=== PATIENT | male | born 1990 | race Caucasian/White ===

== ENCOUNTER 2018-07-25 15:54 | Observation (INO) | payer OTHER ==
--- NOTE | 2018-07-25 15:55 | EDM.PDOC ---
ED HPI GENERAL MEDICAL PROBLEM - General Stated Complaint: RIGHT SIDE PAIN Time Seen by Provider: 07/25/18 15:55 Source of Information: Reports: Patient History Limitations: Reports: No Limitations - History of Present Illness INITIAL COMMENTS - FREE TEXT/NARRATIVE: HISTORY AND PHYSICAL: History of present illness: Patient is a 27-year-old male who presents to the emergency room with complaints of right lower quadrant pain 2 days. Patient reports he has had nausea without vomiting. Subjective chills but has not checked a temperature at home. He denies any headache, change in vision, syncope or near syncope. Denies any chest pain, back pain, shortness of breath or cough. Denies any vomiting, diarrhea, constipation or dysuria. Has not noted any blood in urine or stool. Patient has been eating and drinking appropriately. Review of systems: As per history of present illness and below otherwise all systems reviewed and negative. Past medical history: As per history of present illness and as reviewed below otherwise noncontributory. Surgical history: As per history of present illness and as reviewed below otherwise noncontributory. Social history: See social history for further information Family history: As per history of present illness and as reviewed below otherwise noncontributory. Physical exam: General: Well-developed and well-nourished 27-year-old male. Alert and oriented. Nontoxic appearing and in no acute distress. HEENT: Atraumatic, normocephalic, pupils equal and reactive bilaterally, negative for conjunctival pallor or scleral icterus, mucous membranes moist, TMs normal bilaterally, throat clear, neck supple, nontender, trachea midline. No drooling or trismus noted. No meningeal signs. No hot potato voice noted. Lungs: Clear to auscultation, breath sounds equal bilaterally, chest nontender. Heart: S1S2, regular rate and rhythm without overt murmur Abdomen: Soft, nondistended, tenderness to the RLQ, no rebound tenderness. Negative for masses or hepatosplenomegaly. Negative for costovertebral tenderness. Pelvis: Stable nontender. Genitourinary: Deferred. Rectal: Deferred. Skin: Intact, warm, dry. No lesions or rashes noted. Extremities: Atraumatic, moves all extremities per self without difficulty or deficits, negative for cords or calf pain. Neurovascular unremarkable. Neuro: Awake, alert, oriented. Cranial nerves II through XII unremarkable. Cerebellum unremarkable. Motor and sensory unremarkable throughout. Exam nonfocal. Notes: Lab work is unremarkable. The CT shows acute appendicitis. Dr. Wooten, general surgeon formulation scientist, was consulted on this case. He states he will come in and see the patient. Patient was made aware of the diagnostic findings. He declines the need for anything further for pain at this time. 1945:Dr Wooten here to see patient. Diagnostics: CBC, CMP, UA, CT Abdomen/Pelvis Therapeutics: IV fluids, Zofran, Toradol Impression: Acute appendicitis Plan: To OR per Je Definitive disposition and diagnosis as appropriate pending reevaluation and review of above. Right Lower Abdomen Pain Score (Numeric/FACES): 7 - Related Data Allergies Allergy/AdvReac Type Severity Reaction Status Date / Time Penicillins Allergy Hives Verified 07/25/18 16:09 Home Meds: Home Meds . [No Known Home Meds] 07/25/18 [History] ED ROS GENERAL - Review of Systems Review Of Systems: ROS reveals no pertinent complaints other than HPI. ED EXAM, GI/ABD - Physical Exam Exam: See Below (See dictation) Course - Vital Signs Last Recorded V/S: Last Vital Signs Temp 98.9 F 07/25/18 16:09 Pulse 78 07/25/18 20:20 Resp 16 07/25/18 20:20 BP 115/65 07/25/18 20:20 Pulse Ox 97 07/25/18 20:20 - Orders/Labs/Meds Orders: Active Orders 24 hr Category Date Time Status Admission Status [Patient Status] [ADT] Routine ADT 07/25/18 20:33 Active Antiembolic Devices [RC] PER UNIT ROUTINE Care 07/25/18 20:06 Active Insert Urinary Catheter [OM.PC] Timed Care 07/25/18 20:06 Ordered Oxygen Therapy [RC] ASDIRECTED Care 07/25/18 20:06 Active RT Incentive Spirometry [RC] Q1HWA Care 07/25/18 20:06 Active Skin Preparation [RC] .PREOP Care 07/25/18 20:06 Active Urinary Catheter Assessment [RC] ASDIRECTED Care 07/25/18 20:06 Active Urinary Catheter Assessment [RC] ASDIRECTED Care 07/25/18 20:06 Active Urinary Catheter Assessment [RC] ASDIRECTED Care 07/25/18 20:06 Active Vital Signs [RC] PER UNIT ROUTINE Care 07/25/18 20:06 Active Nothing Per Oral Diet [DIET] Diet 07/25/18 Dinner Active Lactated Ringers [Ringers, Lactated] 1,000 ml Med 07/25/18 20:15 Active IV ASDIRECTED Antiembolic Hose [OM.PC] Routine Oth 07/25/18 20:06 Ordered Resuscitation Status Routine Resus Stat 07/25/18 20:06 Ordered Medication Orders Lactated Ringer's (Ringers, Lactated) 1,000 mls @ 125 mls/hr IV ASDIRECTED ELIANA Last Admin: 07/25/18 20:24 Dose: 125 mls/hr Labs: Laboratory Tests 07/25/18 07/25/18 07/25/18 Range/Units 16:40 16:40 17:00 WBC 9.42 (4.0-11.0) K/uL RBC 5.39 (4.50-5.90) M/uL Hgb 16.5 (13.0-17.0) g/dL Hct 48.3 (38.0-50.0) % MCV 89.6 (80.0-98.0) fL MCH 30.6 (27.0-32.0) pg MCHC 34.2 (31.0-37.0) g/dL RDW Std Deviation 42.6 (28.0-62.0) fl RDW Coeff of Roshan 13 (11.0-15.0) % Plt Count 206 (150-400) K/uL MPV 11.40 (7.40-12.00) fL Neut % (Auto) 70.1 (48.0-80.0) % Lymph % (Auto) 20.6 (16.0-40.0) % [place] % (Auto) 7.5 (0.0-15.0) % Eos % (Auto) 1.5 (0.0-7.0) % Baso % (Auto) 0.3 (0.0-1.5) % Neut # (Auto) 6.6 H (1.4-5.7) K/uL Lymph # (Auto) 1.9 (0.6-2.4) K/uL [place] # (Auto) 0.7 (0.0-0.8) K/uL Eos # (Auto) 0.1 (0.0-0.7) K/uL Baso # (Auto) 0.0 (0.0-0.1) K/uL Nucleated RBC % 0.0 /100WBC Nucleated RBCs # 0 K/uL Sodium 138 (136-148) mmol/L Potassium 3.9 (3.5-5.1) mmol/L Chloride 102 (98-107) mmol/L Carbon Dioxide 25.7 (21.0-32.0) mmol/L BUN 8 (7.0-18.0) mg/dL Creatinine 0.9 (0.8-1.3) mg/dL Est Cr Clr Drug Dosing 138.10 mL/min Estimated GFR (MDRD) > 60.0 ml/min Glucose 95 (74-106) mg/dL Calcium 9.7 (8.5-10.1) mg/dL Total Bilirubin 0.8 (0.2-1.0) mg/dL AST 12 L (15-37) IU/L ALT 31 (14-63) IU/L Alkaline Phosphatase 44 L (46-116) U/L Total Protein 8.4 H (6.4-8.2) g/dL Albumin 4.6 (3.4-5.0) g/dL Globulin 3.8 (2.6-4.0) g/dL Albumin/Globulin Ratio 1.2 (0.9-1.6) Urine Color YELLOW Urine Appearance CLEAR Urine pH 7.0 (5.0-8.0) Ur Specific [place] <= 1.005 (1.001-1.035) Urine Protein NEGATIVE (NEGATIVE) mg/dL Urine Glucose (UA) NEGATIVE (NEGATIVE) mg/dL Urine Ketones NEGATIVE (NEGATIVE) mg/dL Urine Occult Blood NEGATIVE (NEGATIVE) Urine Nitrite NEGATIVE (NEGATIVE) Urine Bilirubin NEGATIVE (NEGATIVE) Urine Urobilinogen 0.2 (<2.0) EU/dL Ur Leukocyte Esterase NEGATIVE (NEGATIVE) Meds: Medications Generic Name Dose Route Start Last Admin Trade Name Freq PRN Reason Stop Dose Admin Lactated Ringer's 1,000 mls @ 125 mls/hr 07/25/18 20:15 07/25/18 20:24 Ringers, Lactated IV 125 mls/hr ASDIRECTED ELIANA Administration Discontinued Medications Generic Name Dose Route Start Last Admin Trade Name Freq PRN Reason Stop Dose Admin Bupivacaine HCl Confirm 04/26/19 20:32 Sensorcaine-Mpf 0.5% Administered 07/25/18 20:33 Dose 10 ml .ROUTE .STK-MED ONE Cefazolin Sodium Confirm 07/25/18 20:32 Ancef Administered 07/25/18 20:33 Dose 1 gm .ROUTE .STK-MED ONE Fentanyl Confirm 07/25/18 20:27 Sublimaze Administered 07/25/18 20:28 Dose 250 mcg .ROUTE .STK-MED ONE Sodium Chloride 1,000 mls @ 999 mls/hr 07/25/18 16:12 07/25/18 17:00 Normal Saline IV 07/25/18 17:12 999 mls/hr STAT ONE Administration Cefoxitin Sodium 2 gm/ Premix 50 mls @ 100 mls/hr 07/25/18 20:06 07/25/18 20: 29 IV 07/25/18 20:35 100 mls/hr ONETIME ONE Administration Iopamidol 100 ml 07/25/18 18:09 07/25/18 18:10 Isovue Multipack-370 (76%) IVPUSH 07/25/18 18:10 100 ml ONETIME STA Administration Ketorolac Tromethamine 30 mg 07/25/18 16:12 07/25/18 16:43 Toradol IVPUSH 07/25/18 16:13 30 mg ONETIME ONE Administration Lidocaine Confirm 07/25/18 20:27 Xylocaine-Mpf 2% Administered 07/25/18 20:28 Dose 5 ml .ROUTE .STK-MED ONE Midazolam HCl Confirm 07/25/18 20:27 Versed 1 Mg/Ml Administered 07/25/18 20:28 Dose 2 mg .ROUTE .STK-MED ONE Ondansetron HCl 4 mg 07/25/18 16:12 07/25/18 16:43 Zofran IVPUSH 07/25/18 16:13 4 mg ONETIME ONE Administration Ondansetron HCl Confirm 07/25/18 20:27 Zofran Administered 07/25/18 20:28 Dose 4 mg .ROUTE .STK-MED ONE Propofol Confirm 07/25/18 20:27 Diprivan 20 Ml Administered 07/25/18 20:28 Dose 200 mg .ROUTE .STK-MED ONE Rocuronium Funk Confirm 07/25/18 20:27 Zemuron Administered 07/25/18 20:28 Dose 100 mg .ROUTE .STK-MED ONE Succinylcholine Chloride Confirm 07/25/18 20:27 Succinylcholine Chloride Administered 07/25/18 20:28 Dose 200 mg .ROUTE .STK-MED ONE Departure - Departure Time of Disposition: 20:44 Disposition: Refer to Observation Clinical Impression: Acute appendicitis Qualifiers: Acute appendicitis type: unspecified acute appendicitis type Qualified Code(s) : K35.80 - Unspecified acute appendicitis - Discharge Information - My Orders Last 24 Hours: My Active Orders 07/25/18 20:33 Admission Status [Patient Status] [ADT] Routine - Assessment/Plan Last 24 Hours: My Active Orders 07/25/18 20:33 Admission Status [Patient Status] [ADT] Routine
[2018-07-25] MEDS ORDERED: Ondansetron 4 MG/2 ML SDV IVPUSH ONE (16:12)
[2018-07-25] MEDS ORDERED: Ketorolac 30 MG/ML SDV IVPUSH ONE (16:12)
[2018-07-25] MEDS ORDERED: Sodium Chloride 0.9% 1,000 ML IV ONE (16:12)
[2018-07-25 17:38] LABS: CHLORIDE,CL 102 mmol/L (98-107); SODIUM,NA 138 mmol/L (136-148)
[2018-07-25] MEDS ORDERED: Iopamidol 755 MG/ML 500 ML Multipack Bottle IVPUSH STA (18:09)
--- NOTE | 2018-07-25 19:19 | CT ---
INDICATION: Right lower quadrant pain TECHNIQUE: CT abdomen and pelvis acquired with IV contrast. 100 mL of Isovue 370 administered. COMPARISON: None available FINDINGS: Lower chest: Unremarkable. Liver: Unremarkable. Spleen: Unremarkable. Pancreas: Unremarkable. Gallbladder and bile ducts: Unremarkable. Adrenal glands: Unremarkable. Kidneys: Unremarkable. GI tract: A thickened appendix measuring 1.1 cm with mild adjacent stranding, consistent with appendicitis. No bowel obstruction. No significant pericolonic changes. Vascular structures: Unremarkable. Lymph nodes: No abnormally enlarged lymph nodes. Shotty subcentimeter right lower quadrant mesenteric lymph nodes, likely reactive. Miscellaneous: No significant free fluid or free air. Pelvic Organs: Unremarkable. Bones: Unremarkable for age. IMPRESSION: Acute appendicitis. Dictated by Ehsan Velazco MD @ 07/25/2018 7:16:51 PM Please note that all CT scans at this facility use dose modulation, iterative reconstruction, and/or weight-based dosing when appropriate to reduce radiation dose to as low as reasonably achievable. Dictated by: Ehsan Velazco MD @ 07/25/2018 19:17:13 (Electronically Signed)
[2018-07-25] MEDS ORDERED: cefOXitin 2 GM in Premix Bag 1 BAG IV ONE (20:06)
--- NOTE | 2018-07-25 20:12 | PCM.CONS ---
H&P History of Present Illness - General Date of Service: 07/25/18 Admit Problem/Dx: Patient is a 27-year-old gentleman who presented to the emergency room earlier today complaining of abdominal pain. The pain was initially centrally located. Patient thought he had eaten something bad. He was able to go to sleep last time but the pain awakened him during the night. He has had associated nausea but no vomiting. Says his appetite is poor. Pain has migrated to the right lower quadrant. Denies any fever or chills. Source of Information: Patient, Family History Limitations: Reports: No Limitations - History of Present Illness Symptom Onset Date: 07/24/18 Duration of Symptoms: Reports: Constant, Getting Worse Location: Reports: Abdomen Quality: Reports: Ache, Pressure Severity: Moderate Improves with: Reports: Rest Worsens with: Reports: Movement Context: Reports: Sick Contact Associated Symptoms: Reports: Fever/Chills (No chills), Nausea/Vomiting (No vomiting) Right Lower Abdomen Pain Score (Numeric/FACES): 7 - Related Data Allergies/Adverse Reactions: Allergies Allergy/AdvReac Type Severity Reaction Status Date / Time Penicillins Allergy Hives Verified 07/25/18 16:09 Home Medications: Home Meds . [No Known Home Meds] 07/25/18 [History] Past Medical History Cardiovascular History: Reports: None Respiratory History: Reports: None Gastrointestinal History: Reports: None Genitourinary History: Reports: None Musculoskeletal History: Reports: None Neurological History: Reports: None Psychiatric History: Reports: None Endocrine/Metabolic History: Reports: None Hematologic History: Reports: None Immunologic History: Reports: None Oncologic (Cancer) History: Reports: None Dermatologic History: Reports: None - Infectious Disease History Infectious Disease History: Reports: Chicken Pox - Past Surgical History Head Surgeries/Procedures: Reports: None HEENT Surgical History: Reports: Tonsillectomy Other Musculoskeletal Surgeries/Procedures:: Repair of fractured ankle. Bone cyst removal. Social & Family History - Family History Family Medical History: Noncontributory - Tobacco Use Smoking Status *Q: Never Smoker Second Hand Smoke Exposure: No - Caffeine Use Caffeine Use: Reports: Energy Drinks - Recreational Drug Use Recreational Drug Use: No H&P Review of Systems - Review of Systems: Review Of Systems: See Below General: Reports: Fever, Decreased Appetite. Denies: Chills, Night Sweats, Diaphoresis, Weight Loss HEENT: Reports: No Symptoms Pulmonary: Denies: Shortness of Breath, Wheezing Cardiovascular: Denies: Chest Pain Gastrointestinal: Reports: Abdominal Pain, Anorexia, Decreased Appetite, Nausea. Denies: Constipation, Diarrhea, Vomiting Genitourinary: Denies: Dysuria, Frequency, Burning Musculoskeletal: Reports: No Symptoms Skin: Reports: No Symptoms Psychiatric: Reports: No Symptoms Neurological: Reports: No Symptoms Hematologic/Lymphatic: Reports: No Symptoms Immunologic: Reports: No Symptoms Exam - Exam Exam: See Below - Vital Signs Vital Signs: Last Vital Signs Temp 98.9 F 07/25/18 16:09 Pulse 72 07/25/18 18:30 Resp 16 07/25/18 18:30 BP 107/65 07/25/18 18:30 Pulse Ox 99 07/25/18 18:30 Weight: 220 lb - Exam General: Alert, Oriented, Cooperative, Mild Distress HEENT: Conjunctiva Clear, EACs Clear, Pupils Equal, Pupils Reactive, Scleral Icterus Neck: Supple, Trachea Midline, +2 Carotid Pulse wo Bruit Lungs: Clear to Auscultation, Normal Respiratory Effort Cardiovascular: Regular Rate, Regular Rhythm, Normal S1, Normal S2. No: Tachycardia GI/Abdominal Exam: Normal Bowel Sounds, Soft, No Distention, No Abnormal Bruit, No Mass, Rebound, Tender. No: Guarding, Rigid, Hernia (Male) Exam: No Hernia Rectal (Males) Exam: Deferred Back Exam: Normal Inspection Extremities: Normal Inspection Peripheral Pulses: 4+: Posterior Tibial (L), Posterior Tibial (R), Dorsalis Pedis (L), Dorsalis Pedis (R) Skin: Warm, Dry, Intact Neurological: Cranial Nerves Intact, Reflexes Equal Bilateral Neuro Extensive - Mental Status: Alert, Oriented x3, Normal Mood/Affect, Normal Cognition Psychiatric: Alert, Normal Affect, Normal Mood - Patient Data Lab Results Last 24 hrs: Laboratory Results - last 24 hr 07/25/18 07/25/18 07/25/18 Range/Units 16:40 16:40 17:00 WBC 9.42 (4.0-11.0) K/uL RBC 5.39 (4.50-5.90) M/uL Hgb 16.5 (13.0-17.0) g/dL Hct 48.3 (38.0-50.0) % MCV 89.6 (80.0-98.0) fL MCH 30.6 (27.0-32.0) pg MCHC 34.2 (31.0-37.0) g/dL RDW Std Deviation 42.6 (28.0-62.0) fl RDW Coeff of Roshan 13 (11.0-15.0) % Plt Count 206 (150-400) K/uL MPV 11.40 (7.40-12.00) fL Neut % (Auto) 70.1 (48.0-80.0) % Lymph % (Auto) 20.6 (16.0-40.0) % [place] % (Auto) 7.5 (0.0-15.0) % Eos % (Auto) 1.5 (0.0-7.0) % Baso % (Auto) 0.3 (0.0-1.5) % Neut # (Auto) 6.6 H (1.4-5.7) K/uL Lymph # (Auto) 1.9 (0.6-2.4) K/uL [place] # (Auto) 0.7 (0.0-0.8) K/uL Eos # (Auto) 0.1 (0.0-0.7) K/uL Baso # (Auto) 0.0 (0.0-0.1) K/uL Nucleated RBC % 0.0 /100WBC Nucleated RBCs # 0 K/uL Sodium 138 (136-148) mmol/L Potassium 3.9 (3.5-5.1) mmol/L Chloride 102 (98-107) mmol/L Carbon Dioxide 25.7 (21.0-32.0) mmol/L BUN 8 (7.0-18.0) mg/dL Creatinine 0.9 (0.8-1.3) mg/dL Est Cr Clr Drug Dosing 138.10 mL/min Estimated GFR (MDRD) > 60.0 ml/min Glucose 95 (74-106) mg/dL Calcium 9.7 (8.5-10.1) mg/dL Total Bilirubin 0.8 (0.2-1.0) mg/dL AST 12 L (15-37) IU/L ALT 31 (14-63) IU/L Alkaline Phosphatase 44 L (46-116) U/L Total Protein 8.4 H (6.4-8.2) g/dL Albumin 4.6 (3.4-5.0) g/dL Globulin 3.8 (2.6-4.0) g/dL Albumin/Globulin Ratio 1.2 (0.9-1.6) Urine Color YELLOW Urine Appearance CLEAR Urine pH 7.0 (5.0-8.0) Ur Specific [place] <= 1.005 (1.001-1.035) Urine Protein NEGATIVE (NEGATIVE) mg/dL Urine Glucose (UA) NEGATIVE (NEGATIVE) mg/dL Urine Ketones NEGATIVE (NEGATIVE) mg/dL Urine Occult Blood NEGATIVE (NEGATIVE) Urine Nitrite NEGATIVE (NEGATIVE) Urine Bilirubin NEGATIVE (NEGATIVE) Urine Urobilinogen 0.2 (<2.0) EU/dL Ur Leukocyte Esterase NEGATIVE (NEGATIVE) Result Diagrams: 07/25/18 16:40 07/25/18 16:40 Consult PN Assessment/Plan (1) Acute abdominal pain in right lower quadrant SNOMED Code(s): 381371499, 019622837 Code(s): R10.31 - RIGHT LOWER QUADRANT PAIN Priority: High Current Visit : Yes (2) Acute abdomen SNOMED Code(s): 2439851 Code(s): R10.0 - ACUTE ABDOMEN Priority: High Current Visit: Yes Problem List Initiated/Reviewed/Updated: Yes My Orders Last 24 Hours: My Active Orders 07/25/18 20:06 Antiembolic Devices [RC] PER UNIT ROUTINE Insert Urinary Catheter [OM.PC] Timed Oxygen Therapy [RC] ASDIRECTED RT Incentive Spirometry [RC] Q1HWA Skin Preparation [RC] .PREOP Urinary Catheter Assessment [RC] ASDIRECTED Urinary Catheter Assessment [RC] ASDIRECTED Urinary Catheter Assessment [RC] ASDIRECTED Vital Signs [RC] PER UNIT ROUTINE cefOXitin [Mefoxin in Dextrose,Iso-Osm 2 GM/50 ML] 2 gm Premix Bag 1 bag IV ONETIME Antiembolic Hose [OM.PC] Routine Resuscitation Status Routine 07/25/18 20:15 Lactated Ringers @ 125 MLS/HR(1000ml) Lactated Ringers [Ringers, Lactated] 1, 000 ml IV ASDIRECTED 07/25/18 Dinner Nothing Per Oral Diet [DIET] Plan: Laparoscopic appendectomy, possible open appendectomy. Both operative procedures, along with the risks, including, but not limited to, bleeding, infection, pneumonia, deep venous thrombosis, pulmonary emboli, myocardial infarction, and adjacent organ injury have been reviewed with the patient who voices understanding, offers no questions and agrees to proceed.
--- NOTE | 2018-07-25 20:16 | PCM.PREANE ---
Preanesthetic Assessment - Anesthesia/Transfusion/Family Hx Anesthesia History: Prior Anesthesia Without Reaction Family History of Anesthesia Reaction: No - Review of Systems General: No Symptoms Pulmonary: No Symptoms Cardiovascular: No Symptoms Gastrointestinal: No Symptoms Neurological: No Symptoms Other: Reports: None - Physical Assessment NPO Status Date: 07/25/18 NPO Status Time: 17:00 O2 Sat by Pulse Oximetry: 99 Respiratory Rate: 16 Vital Signs: Last Vital Signs Temp 98.9 F 07/25/18 16:09 Pulse 72 07/25/18 18:30 Resp 16 07/25/18 18:30 BP 107/65 07/25/18 18:30 Pulse Ox 99 07/25/18 18:30 Height: 6 ft 1 in Weight: 99.79 kg ASA Class: 2E Mental Status: Alert & Oriented x3 Airway Class: Mallampati = 2 Dentition: Reports: Normal Dentition Thyro-Mental Finger Breadths: 3 Mouth Opening Finger Breadths: 3 ROM/Head Extension: Full Lungs: Clear to Auscultation, Normal Respiratory Effort Cardiovascular: Regular Rate, Regular Rhythm - Lab Values: Laboratory Last Values WBC 9.42 K/uL (4.0-11.0) 07/25/18 16:40 RBC 5.39 M/uL (4.50-5.90) 07/25/18 16:40 Hgb 16.5 g/dL (13.0-17.0) 07/25/18 16:40 Hct 48.3 % (38.0-50.0) 07/25/18 16:40 MCV 89.6 fL (80.0-98.0) 07/25/18 16:40 MCH 30.6 pg (27.0-32.0) 07/25/18 16:40 MCHC 34.2 g/dL (31.0-37.0) 07/25/18 16:40 RDW Std Deviation 42.6 fl (28.0-62.0) 07/25/18 16:40 RDW Coeff of Roshan 13 % (11.0-15.0) 07/25/18 16:40 Plt Count 206 K/uL (150-400) 07/25/18 16:40 MPV 11.40 fL (7.40-12.00) 07/25/18 16:40 Neut % (Auto) 70.1 % (48.0-80.0) 07/25/18 16:40 Lymph % (Auto) 20.6 % (16.0-40.0) 07/25/18 16:40 [place] % (Auto) 7.5 % (0.0-15.0) 07/25/18 16:40 Eos % (Auto) 1.5 % (0.0-7.0) 07/25/18 16:40 Baso % (Auto) 0.3 % (0.0-1.5) 07/25/18 16:40 Neut # (Auto) 6.6 K/uL (1.4-5.7) H 07/25/18 16:40 Lymph # (Auto) 1.9 K/uL (0.6-2.4) 07/25/18 16:40 [place] # (Auto) 0.7 K/uL (0.0-0.8) 07/25/18 16:40 Eos # (Auto) 0.1 K/uL (0.0-0.7) 07/25/18 16:40 Baso # (Auto) 0.0 K/uL (0.0-0.1) 07/25/18 16:40 Nucleated RBC % 0.0 /100WBC 07/25/18 16:40 Nucleated RBCs # 0 K/uL 07/25/18 16:40 Sodium 138 mmol/L (136-148) 07/25/18 16:40 Potassium 3.9 mmol/L (3.5-5.1) 07/25/18 16:40 Chloride 102 mmol/L (98-107) 07/25/18 16:40 Carbon Dioxide 25.7 mmol/L (21.0-32.0) 07/25/18 16:40 BUN 8 mg/dL (7.0-18.0) 07/25/18 16:40 Creatinine 0.9 mg/dL (0.8-1.3) 07/25/18 16:40 Est Cr Clr Drug Dosing 138.10 mL/min 07/25/18 16:40 Estimated GFR (MDRD) > 60.0 ml/min 07/25/18 16:40 Glucose 95 mg/dL (74-106) 07/25/18 16:40 Calcium 9.7 mg/dL (8.5-10.1) 07/25/18 16:40 Total Bilirubin 0.8 mg/dL (0.2-1.0) 07/25/18 16:40 AST 12 IU/L (15-37) L 07/25/18 16:40 ALT 31 IU/L (14-63) 07/25/18 16:40 Alkaline Phosphatase 44 U/L (46-116) L 07/25/18 16:40 Total Protein 8.4 g/dL (6.4-8.2) H 07/25/18 16:40 Albumin 4.6 g/dL (3.4-5.0) 07/25/18 16:40 Globulin 3.8 g/dL (2.6-4.0) 07/25/18 16:40 Albumin/Globulin Ratio 1.2 (0.9-1.6) 07/25/18 16:40 Urine Color YELLOW 07/25/18 17:00 Urine Appearance CLEAR 07/25/18 17:00 Urine pH 7.0 (5.0-8.0) 07/25/18 17:00 Ur Specific [place] <= 1.005 (1.001-1.035) 07/25/18 17:00 Urine Protein NEGATIVE mg/dL (NEGATIVE) 07/25/18 17:00 Urine Glucose (UA) NEGATIVE mg/dL (NEGATIVE) 07/25/18 17:00 Urine Ketones NEGATIVE mg/dL (NEGATIVE) 07/25/18 17:00 Urine Occult Blood NEGATIVE (NEGATIVE) 07/25/18 17:00 Urine Nitrite NEGATIVE (NEGATIVE) 07/25/18 17:00 Urine Bilirubin NEGATIVE (NEGATIVE) 07/25/18 17:00 Urine Urobilinogen 0.2 EU/dL (<2.0) 07/25/18 17:00 Ur Leukocyte Esterase NEGATIVE (NEGATIVE) 07/25/18 17:00 - Allergies Allergies/Adverse Reactions: Allergies Allergy/AdvReac Type Severity Reaction Status Date / Time Penicillins Allergy Hives Verified 07/25/18 16:09 - Acknowledgements Anesthesia Type Planned: General Anesthesia Pt an Appropriate Candidate for the Planned Anesthesia: Yes Alternatives and Risks of Anesthesia Discussed w Pt/Guardian: Yes Pt/Guardian Understands and Agrees with Anesthesia Plan: Yes PreAnesthesia Questionnaire HEENT History: Reports: None Cardiovascular History: Reports: None Respiratory History: Reports: None Gastrointestinal History: Reports: None Genitourinary History: Reports: None Musculoskeletal History: Reports: None Neurological History: Reports: None Psychiatric History: Reports: None Endocrine/Metabolic History: Reports: None Hematologic History: Reports: None Immunologic History: Reports: None Oncologic (Cancer) History: Reports: None Dermatologic History: Reports: None - Infectious Disease History Infectious Disease History: Reports: Chicken Pox - Past Surgical History Head Surgeries/Procedures: Reports: None HEENT Surgical History: Reports: Tonsillectomy Other Musculoskeletal Surgeries/Procedures:: Repair of fractured ankle. Bone cyst removal. - SUBSTANCE USE Smoking Status *Q: Never Smoker Second Hand Smoke Exposure: No Recreational Drug Use History: No - HOME MEDS Home Medications: Home Meds . [No Known Home Meds] 07/25/18 [History] - CURRENT (IN HOUSE) MEDS Current Meds: Current Medications Cefoxitin Sodium 2 gm/ Premix 50 mls @ 100 mls/hr IV ONETIME ONE Stop: 07/25/18 20:35 Lactated Ringer's (Ringers, Lactated) 1,000 mls @ 125 mls/hr IV ASDIRECTED ELIANA Discontinued Medications Sodium Chloride (Normal Saline) 1,000 mls @ 999 mls/hr IV STAT ONE Stop: 07/25/18 17:12 Last Admin: 07/25/18 17:00 Dose: 999 mls/hr Iopamidol (Isovue Multipack-370 (76%)) 100 ml IVPUSH ONETIME STA Stop: 07/25/18 18:10 Last Admin: 07/25/18 18:10 Dose: 100 ml Ketorolac Tromethamine (Toradol) 30 mg IVPUSH ONETIME ONE Stop: 07/25/18 16:13 Last Admin: 07/25/18 16:43 Dose: 30 mg Ondansetron HCl (Zofran) 4 mg IVPUSH ONETIME ONE Stop: 07/25/18 16:13 Last Admin: 07/25/18 16:43 Dose: 4 mg
[2018-07-25] MEDS: Lactated Ringers 1,000 ML IV SCH ×2 (20:24→23:16)
[2018-07-25] MEDS ORDERED: Ondansetron 4 MG/2 ML SDV ONE (20:27)
[2018-07-25] MEDS ORDERED: Rocuronium 100 MG/10 ML Syringe ONE (20:27)
[2018-07-25] MEDS ORDERED: fentaNYL 250 MCG/5 ML SDV ONE (20:27)
[2018-07-25] MEDS ORDERED: Midazolam 1 MG/ML 2 ML SDV ONE (20:27)
[2018-07-25] MEDS ORDERED: Propofol 200 MG/20 ML SDV ONE (20:27)
[2018-07-25] MEDS ORDERED: Lidocaine 2% 5 ML SDV ONE (20:27)
[2018-07-25] MEDS ORDERED: Bupivacaine 0.5% 10 ML SDV ONE (20:32)
[2018-07-25] MEDS ORDERED: ceFAZolin 1 GM Vial ONE (20:32)
[2018-07-25] MEDS ORDERED: ePHEDrine 50 MG/ML SDV ONE (21:15)
[2018-07-25] MEDS ORDERED: Glycopyrrolate 0.2 MG/ML SDV ONE ×2 (21:17→22:03)
[2018-07-25] MEDS ORDERED: Naloxone 0.4 MG/ML Syringe IVPUSH PRN (21:24)
[2018-07-25] MEDS ORDERED: Albuterol 0.083% 2.5 MG/3 ML Neb Soln NEB PRN (21:24)
[2018-07-25] MEDS ORDERED: Atropine 0.1 MG/ML 10 ML Syringe IVPUSH PRN ×2 (21:24)
[2018-07-25] MEDS ORDERED: EPINEPHrine 1:10,000 1 MG/10 ML Syringe IVPUSH PRN (21:24)
[2018-07-25] MEDS ORDERED: 50% Dextrose in Water 50 ML Syringe IVPUSH PRN (21:24)
[2018-07-25] MEDS ORDERED: fentaNYL 100 MCG/2 ML SDV IVPUSH PRN (21:24)
[2018-07-25] MEDS ORDERED: Acetaminophen 325 MG Tab PO PRN (22:26)
[2018-07-25] MEDS ORDERED: Morphine 2 MG/ML Syringe IVPUSH PRN (22:26)
[2018-07-25] MEDS ORDERED: Ondansetron 4 MG/2 ML SDV IVPUSH PRN (22:26)
[2018-07-25] MEDS ORDERED: Lactated Ringers 1,000 ML IV SCH (22:30)
--- NOTE | 2018-07-25 22:34 | PCM.OPNOTE ---
- General Post-Op/Procedure Note Date of Surgery/Procedure: 07/25/18 Operative Procedure(s): Laparoscopic appendectomy Pre Op Diagnosis: Acute abdomen Post-Op Diagnosis: Acute nonruptured appendicitis Anesthesia Technique: General ET Tube (ASA IIE) Primary Surgeon: Cheng Wooten Fluid Replacement, Intraop: 1,400 Output, Urine Amount: 205 EBL in mLs: 10 Condition: Stable Free Text/Narrative:: DICTATION [id number] CPT CODE 61825
--- NOTE | 2018-07-25 22:39 | PCM.POSTAN ---
POST ANESTHESIA ASSESSMENT - MENTAL STATUS Mental Status: Alert, Oriented - VITAL SIGNS Pulse Rate: 90 SaO2: 97 Resp Rate: 14 Blood Pressure: 128/73 - RESPIRATORY Respiratory Status: Respiratory Rate WNL, Airway Patent, O2 Saturation Stable - CARDIOVASCULAR CV Status: Pulse Rate WNL, Blood Pressure Stable - GASTROINTESTINAL GI Status: No Symptoms - PAIN Pain Score: 1 - POST OP HYDRATION Hydration Status: Adequate & Stable
[2018-07-26] MEDS: Acetaminophen/HYDROcodone 325-5 MG Tab PO PRN ×2 (02:19→12:57)
--- NOTE | 2018-07-26 04:04 | OR ---
SURGEON: Cheng Wooten M.D. DATE OF PROCEDURE: 07/25/2018 OPERATION PERFORMED: Laparoscopic appendectomy. ANESTHESIA: General endotracheal. ASA CLASSIFICATION: 2E. PREOPERATIVE DIAGNOSIS: Acute abdomen. POSTOPERATIVE DIAGNOSIS: Acute suppurative nonruptured appendicitis. ESTIMATED BLOOD LOSS: 10 mL. INTRAOPERATIVE FLUID REPLACEMENT: 1400 mL of crystalloid. INTRAOPERATIVE URINE OUTPUT: 205 mL. DESCRIPTION OF PROCEDURE: The patient was taken to the operating room and placed on the operating table in the supine position. Time-out was called for appropriate identification of the patient and procedure. Thigh-high TEDs and sequential compression boots were placed. Following satisfactory attainment of general endotracheal anesthesia, a Pearl catheter was placed to the patient's urinary bladder. The abdomen was prepped with DuraPrep solution. Sterile drapes were applied. The skin just above the umbilicus was infiltrated with 0.5% Marcaine solution. A skin incision was made. Hemostasis was obtained with the use of electrocautery. The Veress needle was introduced into the peritoneal cavity. Saline drop test was positive. Carbon dioxide pneumoperitoneum was established with the relief set at 13 cm of water. Once we had a satisfactory pneumoperitoneum 5 mm camera was placed through the supraumbilical incision. The patient was now positioned with his head down and rolled to the left. Under camera vision, 12 mm suprapubic and 5 mm left lower quadrant ports were placed. Each incision was preemptively infiltrated prior to the skin incision being made. With the trocars in place, the appendix was grasped at its exit from the cecum. The appendix was stuck down and using the Harmonic scalpel, I was able to completely mobilize this. The base of the appendix was not involved. Once the mesoappendix had been taken down with the Harmonic scalpel. The appendix was doubly ligated with 0 PDS endo- loops. The appendix was then divided with the Harmonic Scalpel and immediately placed in the EndoCatch retrieval bag. This was left in situ temporarily. The right lower quadrant was examined. No bleeding was noted. There was no cloudy fluid. The right lower quadrant was irrigated with 1% Ancef solution and all fluid was aspirated. Once that was accomplished, the 12 mm port and EndoCatch containing the appendix were removed. The left lower quadrant port was removed under camera vision, as was the supraumbilical camera and port. The wounds were inspected for hemostasis and small bleeding sites were electrocoagulated. The supraumbilical and suprapubic incisions were closed in 2 layers approximating the subcutaneous tissue with 3-0 Vicryl and the skin with subcuticular 4-0 Monocryl. The left lower quadrant port was closed with subcuticular 4-0 Monocryl. All incisions were Steri-Stripped and dressed with sterile Tegaderm pads. Sponge, needle, and instrument counts were all correct. Pearl catheter was removed prior to emergence from anesthesia. Following emergence from anesthesia and extubation, the patient was taken to recovery room in stable condition. KALPANA AHMADI /[id number]
[2018-07-26] MEDS: cefOXitin 1 GM in Premix Bag 1 BAG IV SCH ×2 (04:18→12:44)
--- NOTE | 2018-07-26 08:28 | PCM48HPAN ---
Post Anesthesia Note - EVALUATION WITHIN 48HRS OF ANESTHETIC Vital Signs in Normal Range: Yes Patient Participated in Evaluation: Yes Respiratory Function Stable: Yes Airway Patent: Yes Cardiovascular Function Stable: Yes Hydration Status Stable: Yes Pain Control Satisfactory: Yes Nausea and Vomiting Control Satisfactory: Yes Mental Status Recovered: Yes Pulse Rate: 90 Resp Rate: 17 Blood Pressure: 128/73 - COMMENTS/OBSERVATIONS Free Text/Narrative:: Patient comfortable at this time. no signs or symptoms of anesthesia related problems.
--- NOTE | 2018-07-26 09:13 | PCM.SURGPN ---
- General Info Date of Service: 07/26/18 Date of Surgery/Procedure: 07/25/18 Admission Diagnosis/Problem: Appendicitis Functional Status: Reports: Pain Controlled, Tolerating Diet, Ambulating, Urinating, Incentive Spirometry - Review of Systems General: Denies: Fever, Weakness, Chills HEENT: Reports: No Symptoms Pulmonary: Denies: Shortness of Breath, Pleuritic Chest Pain Cardiovascular: Denies: Chest Pain Gastrointestinal: Denies: Abdominal Pain, Constipation, Decreased Appetite, Diarrhea, Difficulty Swallowing, Nausea, Vomiting Genitourinary: Reports: No Symptoms Musculoskeletal: Reports: Shoulder Pain (right shoulder pain post laparoscopy) Skin: Denies: Cyanosis, Jaundice, Mottled Neurological: Denies: Confusion, Dizziness Psychiatric: Denies: Confusion, Depression - Patient Data Vitals - Most Recent: Last Vital Signs Temp 97.9 F 07/26/18 08:00 Pulse 90 07/26/18 08:28 Resp 17 07/26/18 08:28 BP 128/73 07/26/18 08:28 Pulse Ox 96 07/26/18 08:00 Weight - Most Recent: 225 lb I&O - Last 24 Hours: Intake & Output 07/25/18 07/26/18 07/26/18 19:59 03:59 11:59 Intake Total 2800 Output Total 410 Balance 2390 Lab Results Last 24 Hrs: Laboratory Results - last 24 hr 07/25/18 07/25/18 07/25/18 Range/Units 16:40 16:40 17:00 WBC 9.42 (4.0-11.0) K/uL RBC 5.39 (4.50-5.90) M/uL Hgb 16.5 (13.0-17.0) g/dL Hct 48.3 (38.0-50.0) % MCV 89.6 (80.0-98.0) fL MCH 30.6 (27.0-32.0) pg MCHC 34.2 (31.0-37.0) g/dL RDW Std Deviation 42.6 (28.0-62.0) fl RDW Coeff of [place]han 13 (11.0-15.0) % Plt Count 206 (150-400) K/uL MPV 11.40 (7.40-12.00) fL Neut % (Auto) 70.1 (48.0-80.0) % Lymph % (Auto) 20.6 (16.0-40.0) % [place] % (Auto) 7.5 (0.0-15.0) % Eos % (Auto) 1.5 (0.0-7.0) % Baso % (Auto) 0.3 (0.0-1.5) % Neut # (Auto) 6.6 H (1.4-5.7) K/uL Lymph # (Auto) 1.9 (0.6-2.4) K/uL [place] # (Auto) 0.7 (0.0-0.8) K/uL Eos # (Auto) 0.1 (0.0-0.7) K/uL Baso # (Auto) 0.0 (0.0-0.1) K/uL Nucleated RBC % 0.0 /100WBC Nucleated RBCs # 0 K/uL Sodium 138 (136-148) mmol/L Potassium 3.9 (3.5-5.1) mmol/L Chloride 102 (98-107) mmol/L Carbon Dioxide 25.7 (21.0-32.0) mmol/L BUN 8 (7.0-18.0) mg/dL Creatinine 0.9 (0.8-1.3) mg/dL Est Cr Clr Drug Dosing 138.10 mL/min Estimated GFR (MDRD) > 60.0 ml/min Glucose 95 (74-106) mg/dL Calcium 9.7 (8.5-10.1) mg/dL Total Bilirubin 0.8 (0.2-1.0) mg/dL AST 12 L (15-37) IU/L ALT 31 (14-63) IU/L Alkaline Phosphatase 44 L (46-116) U/L Total Protein 8.4 H (6.4-8.2) g/dL Albumin 4.6 (3.4-5.0) g/dL Globulin 3.8 (2.6-4.0) g/dL Albumin/Globulin Ratio 1.2 (0.9-1.6) Urine Color YELLOW Urine Appearance CLEAR Urine pH 7.0 (5.0-8.0) Ur Specific [place] <= 1.005 (1.001-1.035) Urine Protein NEGATIVE (NEGATIVE) mg/dL Urine Glucose (UA) NEGATIVE (NEGATIVE) mg/dL Urine Ketones NEGATIVE (NEGATIVE) mg/dL Urine Occult Blood NEGATIVE (NEGATIVE) Urine Nitrite NEGATIVE (NEGATIVE) Urine Bilirubin NEGATIVE (NEGATIVE) Urine Urobilinogen 0.2 (<2.0) EU/dL Ur Leukocyte Esterase NEGATIVE (NEGATIVE) Med Orders - Current: Current Medications Acetaminophen (Tylenol) 325 mg PO Q4H PRN PRN Reason: Fever Greater Than 101 Hydrocodone Bitart/Acetaminophen (Speed 325-5 Mg) 1 - 2 tab PO Q4H PRN PRN Reason: Pain (moderate 4-6) Last Admin: 07/26/18 02:19 Dose: 2 tab Albuterol (Proventil Neb Soln) 2.5 mg NEB ONETIME PRN PRN Reason: Wheezing Atropine Sulfate (Atropine 0.1 Mg/Ml) 0.5 mg IVPUSH ASDIRECTED PRN PRN Reason: Hypo-perfusion Atropine Sulfate (Atropine 0.1 Mg/Ml) 1 mg IVPUSH ASDIRECTED PRN PRN Reason: Hypo-Perfusion Dextrose/Water (Dextrose 50% In Water) 50 ml IVPUSH ASDIRECTED PRN PRN Reason: Hypoglycemia Epinephrine HCl (Epinephrine 1:10,000) 1 mg IVPUSH ASDIRECTED PRN PRN Reason: ACLS Guidelines Fentanyl (Sublimaze) 50 mcg IVPUSH Q5M PRN PRN Reason: Pain Lactated Ringer's (Ringers, Lactated) 1,000 mls @ 125 mls/hr IV ASDIRECTED [facility] Last Admin: 07/25/18 23:16 Dose: 125 mls/hr Lactated Ringer's (Ringers, Lactated) 1,000 mls @ 125 mls/hr IV ASDIRECTED [facility] Cefoxitin Sodium 1 gm/ Premix 50 mls @ 100 mls/hr IV Q8H [facility] Stop: 07/26/18 12:59 Last Admin: 07/26/18 04:18 Dose: 100 mls/hr Morphine Sulfate (Morphine) 1 - 5 mg IVPUSH Q1H PRN PRN Reason: Pain (severe 7-10) Last Admin: 07/25/18 23:16 Dose: 2 mg Naloxone HCl (Narcan) 0.1 mg IVPUSH ASDIRECTED PRN PRN Reason: Respiratory Depression Ondansetron HCl (Zofran) 4 mg IVPUSH Q6H PRN PRN Reason: Nausea/Vomiting Discontinued Medications Bupivacaine HCl (Sensorcaine-Mpf 0.5%) Confirm Administered Dose 10 ml .ROUTE .STK-MED ONE Stop: 07/25/18 20:33 Cefazolin Sodium (Ancef) Confirm Administered Dose 1 gm .ROUTE .STK-MED ONE Stop: 07/25/18 20:33 Ephedrine Sulfate (Ephedrine Sulfate) Confirm Administered Dose 50 mg .ROUTE .STK-MED ONE Stop: 07/25/18 21:16 Fentanyl (Sublimaze) Confirm Administered Dose 250 mcg .ROUTE .STK-MED ONE Stop: 07/25/18 20:28 Glycopyrrolate (Robinul) Confirm Administered Dose 0.2 mg .ROUTE .STK-MED ONE Stop: 07/25/18 21:18 Glycopyrrolate (Robinul) Confirm Administered Dose 0.2 mg .ROUTE .STK-MED ONE Stop: 07/25/18 22:04 Sodium Chloride (Normal Saline) 1,000 mls @ 999 mls/hr IV STAT ONE Stop: 07/25/18 17:12 Last Admin: 07/25/18 17:00 Dose: 999 mls/hr Cefoxitin Sodium 2 gm/ Premix 50 mls @ 100 mls/hr IV ONETIME ONE Stop: 07/25/18 20:35 Last Admin: 07/25/18 20:29 Dose: 100 mls/hr Iopamidol (Isovue Multipack-370 (76%)) 100 ml IVPUSH ONETIME STA Stop: 07/25/18 18:10 Last Admin: 07/25/18 18:10 Dose: 100 ml Ketorolac Tromethamine (Toradol) 30 mg IVPUSH ONETIME ONE Stop: 07/25/18 16:13 Last Admin: 07/25/18 16:43 Dose: 30 mg Lidocaine (Xylocaine-Mpf 2%) Confirm Administered Dose 5 ml .ROUTE .STK-MED ONE Stop: 07/25/18 20:28 Midazolam HCl (Versed 1 Mg/Ml) Confirm Administered Dose 2 mg .ROUTE .STK-MED ONE Stop: 07/25/18 20:28 Ondansetron HCl (Zofran) 4 mg IVPUSH ONETIME ONE Stop: 07/25/18 16:13 Last Admin: 07/25/18 16:43 Dose: 4 mg Ondansetron HCl (Zofran) Confirm Administered Dose 4 mg .ROUTE .STK-MED ONE Stop: 07/25/18 20:28 Propofol (Diprivan 20 Ml) Confirm Administered Dose 200 mg .ROUTE .STK-MED ONE Stop: 07/25/18 20:28 Rocuronium [place] (Zemuron) Confirm Administered Dose 100 mg .ROUTE .STK-MED ONE Stop: 07/25/18 20:28 Succinylcholine Chloride (Succinylcholine Chloride) Confirm Administered Dose 200 mg .ROUTE .STK-MED ONE Stop: 07/25/18 20:28 - Exam Wound/Incisions: Dressing Dry and Intact, No Drainage General: Alert, Oriented, Cooperative, No Acute Distress HEENT: Pupils Equal, Pupils Reactive, EOMI Neck: Supple Lungs: Clear to Auscultation, Normal Respiratory Effort Cardiovascular: Regular Rate, Regular Rhythm GI/Abdominal Exam: Normal Bowel Sounds, Soft, Non-Tender, No Mass Extremities: Normal Inspection Skin: Warm, Dry, Intact Neurological: No New Focal Deficit Psy/Mental Status: Alert, Normal Affect, Normal Mood - Problem List & Annotations (1) Acute abdominal pain in right lower quadrant SNOMED Code(s): 052663626, 481338219 Code(s): R10.31 - RIGHT LOWER QUADRANT PAIN Status: Acute Priority: High Current Visit: Yes (2) Acute abdomen SNOMED Code(s): 1786265 Code(s): R10.0 - ACUTE ABDOMEN Status: Acute Priority: High Current Visit: Yes - Problem List Review Problem List Initiated/Reviewed/Updated: Yes - My Orders Last 24 Hours: Active Orders 24 hr Category Date Time Status Admission Status [Patient Status] [ADT] Routine ADT 07/25/18 20:33 Active Antiembolic Devices [RC] PER UNIT ROUTINE Care 07/25/18 20:06 Active Blood Glucose Check, Bedside [RC] PRN Care 07/25/18 21:24 Active Insert Urinary Catheter [OM.PC] Timed Care 07/25/18 20:06 Ordered May Shower [RC] ASDIRECTED Care 07/26/18 09:06 Ordered Notify Provider Vital Signs [RC] ASDIRECTED Care 07/25/18 21:24 Active Oxygen Therapy [RC] ASDIRECTED Care 07/25/18 20:06 Active Oxygen Therapy [RC] PRN Care 07/25/18 21:24 Active Oxygen Therapy [RC] PRN Care 07/25/18 22:26 Active Pulse Oximetry [RC] ASDIRECTED Care 07/25/18 22:26 Active RT Aerosol Therapy [RC] ASDIRECTED Care 07/25/18 21:24 Active RT Aerosol Therapy [RC] ASDIRECTED Care 07/25/18 21:24 Active RT Incentive Spirometry [RC] Q1HWA Care 07/25/18 20:06 Active RT Incentive Spirometry [RC] Q1HWA Care 07/25/18 22:26 Active Ready for Discharge [RC] PER UNIT ROUTINE Care 07/26/18 09:08 Ordered Skin Preparation [RC] .PREOP Care 07/25/18 20:06 Active Up ad Mandi [RC] PER UNIT ROUTINE Care 07/25/18 22:26 Active Urinary Catheter Assessment [RC] ASDIRECTED Care 07/25/18 20:06 Active Urinary Catheter Assessment [RC] ASDIRECTED Care 07/25/18 20:06 Active Urinary Catheter Assessment [RC] ASDIRECTED Care 07/25/18 20:06 Active Vital Signs [RC] PER UNIT ROUTINE Care 07/25/18 20:06 Active Vital Signs [RC] PER UNIT ROUTINE Care 07/25/18 22:26 Active Vital Signs [RC] Q4H Care 07/25/18 21:24 Active Advance Diet Instructions [DIET] Diet 07/25/18 Dinner Active Regular Diet [DIET] Diet 07/26/18 Breakfast Active Acetaminophen [Tylenol] Med 07/25/18 22:26 Active 325 mg PO Q4H PRN Acetaminophen/HYDROcodone [Speed 325-5 MG] Med 07/25/18 22:26 Active 1 - 2 tab PO Q4H PRN Albuterol [Proventil Neb Soln] Med 07/25/18 21:24 Active 2.5 mg NEB ONETIME PRN Atropine [Atropine 0.1 MG/ML] Med 07/25/18 21:24 Active 0.5 mg IVPUSH ASDIRECTED PRN Atropine [Atropine 0.1 MG/ML] Med 07/25/18 21:24 Active 1 mg IVPUSH ASDIRECTED PRN Dextrose 50% in Water Med 07/25/18 21:24 Active 50 ml IVPUSH ASDIRECTED PRN EPINEPHrine [EPINEPHrine 1:10,000] Med 07/25/18 21:24 Active 1 mg IVPUSH ASDIRECTED PRN Lactated Ringers [Ringers, Lactated] 1,000 ml Med 07/25/18 20:15 Active IV ASDIRECTED Lactated Ringers [Ringers, Lactated] 1,000 ml Med 07/25/18 22:30 Active IV ASDIRECTED Morphine Med 07/25/18 22:26 Active 1 - 5 mg IVPUSH Q1H PRN Naloxone [Narcan] Med 07/25/18 21:24 Active 0.1 mg IVPUSH ASDIRECTED PRN Ondansetron [Zofran] Med 07/25/18 22:26 Active 4 mg IVPUSH Q6H PRN cefOXitin [Mefoxin in Dextrose,Iso-Osm 1 GM/50 ML] 1 gm Med 07/26/18 04:30 Active Premix Bag 1 bag IV Q8H fentaNYL [Sublimaze] Med 07/25/18 21:24 Active 50 mcg IVPUSH Q5M PRN Antiembolic Hose [OM.PC] Routine Oth 07/25/18 20:06 Ordered Resuscitation Status Routine Resus Stat 07/25/18 20:06 Ordered Medication Orders Acetaminophen (Tylenol) 325 mg PO Q4H PRN PRN Reason: Fever Greater Than 101 Hydrocodone Bitart/Acetaminophen (Speed 325-5 Mg) 1 - 2 tab PO Q4H PRN PRN Reason: Pain (moderate 4-6) Last Admin: 07/26/18 02:19 Dose: 2 tab Albuterol (Proventil Neb Soln) 2.5 mg NEB ONETIME PRN PRN Reason: Wheezing Atropine Sulfate (Atropine 0.1 Mg/Ml) 0.5 mg IVPUSH ASDIRECTED PRN PRN Reason: Hypo-perfusion Atropine Sulfate (Atropine 0.1 Mg/Ml) 1 mg IVPUSH ASDIRECTED PRN PRN Reason: Hypo-Perfusion Dextrose/Water (Dextrose 50% In Water) 50 ml IVPUSH ASDIRECTED PRN PRN Reason: Hypoglycemia Epinephrine HCl (Epinephrine 1:10,000) 1 mg IVPUSH ASDIRECTED PRN PRN Reason: ACLS Guidelines Fentanyl (Sublimaze) 50 mcg IVPUSH Q5M PRN PRN Reason: Pain Lactated Ringer's (Ringers, Lactated) 1,000 mls @ 125 mls/hr IV ASDIRECTED [facility] Last Admin: 07/25/18 23:16 Dose: 125 mls/hr Infusion: 07/25/18 23:16 Dose: 125 mls/hr Admin: 07/25/18 20:24 Dose: 125 mls/hr Lactated Ringer's (Ringers, Lactated) 1,000 mls @ 125 mls/hr IV ASDIRECTED [facility] Cefoxitin Sodium 1 gm/ Premix 50 mls @ 100 mls/hr IV Q8H [facility] Stop: 07/26/18 12:59 Last Admin: 07/26/18 04:18 Dose: 100 mls/hr Morphine Sulfate (Morphine) 1 - 5 mg IVPUSH Q1H PRN PRN Reason: Pain (severe 7-10) Last Admin: 07/25/18 23:16 Dose: 2 mg Naloxone HCl (Narcan) 0.1 mg IVPUSH ASDIRECTED PRN PRN Reason: Respiratory Depression Ondansetron HCl (Zofran) 4 mg IVPUSH Q6H PRN PRN Reason: Nausea/Vomiting - Assessment Assessment (Free Text/Narrative):: Stable post op course following a laparoscopic appendectomy for acute non- ruptured appendicitis. - Plan Plan (Free Text/Narrative):: Patient is going be discharged hospital today. He will be given a prescription for Speed 5/325 1 every 12 hours when necessary pain. I have recommended he follow up with me in 7-10 days. He states he will be out of town returning to his home in [place]. He should follow-up with somebody there during that timeframe.
== END 2018-07-26 13:50 | disposition home or self-care (01) ==
LOC: MW.ED 15:54 → MW.SDS 19:25 → MW.MS 21:13
PROVIDERS: ADMIT Surgery; ATTEND Surgery
DX: K35.80 Unspecified acute appendicitis (principal); Z88.0 Allergy status to penicillin
CPT/HCPCS: 44970; 74177; 80053; 81003; 85025; 96361; 96365; 96368; 96375; 99285; A9270; G0378; J0330; J0690; J0694; J1885; J2001; J2250; J2270; J2405; J2704; J3010; J3490; J7040; J7120; Q9967; 88304; 99284